=== PATIENT | male | born 1960 | race Caucasian/White ===

== ENCOUNTER 2025-09-21 08:16 | Day surgery (SDC) | payer OTHER ==
[2025-09-15 18:00] VITALS: BMI 24.3
[2025-09-21] MEDS ORDERED: PROPOFOL 40 ML ONE (10:13)
== END 2025-09-21 12:30 | disposition home or self-care (01) ==
LOC: CSHSDC 08:16
PROVIDERS: ATTEND Surgery
DX: Z12.11 Encounter for screening for malignant neoplasm of colon (principal); D12.2 Benign neoplasm of ascending colon; D12.3 Benign neoplasm of transverse colon; D12.4 Benign neoplasm of descending colon; K57.30 Diverticulosis of large intestine without perforation or abscess without bleeding; K64.0 First degree hemorrhoids; D17.1 Benign lipomatous neoplasm of skin and subcutaneous tissue of trunk; N40.0 Benign prostatic hyperplasia without lower urinary tract symptoms; Z87.891 Personal history of nicotine dependence
CPT/HCPCS: 88305; J2704